=== PATIENT | female | born 1965 | race American Indian/Alaskan Native ===

== ENCOUNTER 2016-12-28 12:21 | Emergency (ER) | payer BC ==
[2016-12-28] MEDS ORDERED: DUONEB 0.5 MG-3 MG/3 ML SOLN IH ONE (13:30)
[2016-12-28] MEDS ORDERED: DECADRON IM ONE (13:30)
--- NOTE | 2016-12-28 13:33 | Emergency Department Report ---
HPI - General Chief Complaint: Upper Respiratory Infection Time Seen by Provider: 12/28/16 13:29 - HPI HPI: 51-year-old female presents today for wheezing 4 days. Positive for history of asthma. Patient states that she was around a child this weekend who had a cough. Patient took albuterol treatment at home with relief. Positive for productive cough with yellow sputum. Denies nasal congestion, earache. Denies fever, chills, nausea, vomiting, chest pain, abdominal pain. ED Past Medical Hx - Past Medical History Hx Asthma: Yes - Surgical History Additional Surgical History: - Social History Smoking Status: Never Smoker Substance Use Type: Alcohol, Non Opiate Pain, Prescribed - Medications Home Medications: Home Medications Medication Instructions Recorded Confirmed Last Taken Type Acetaminophen/Codeine [Tylenol #3] 1 tab PO Q6H PRN #15 tab 03/14/16 Unknown Rx Advair Diskus 500-50 mcg 03/14/16 03/14/16 History methOCARBAMOL [Robaxin TAB] 500 mg PO BID #20 tab 03/14/16 Unknown Rx ALBUTEROL Inhaler [ProAir HFA 2 puff IH QID PRN #1 inhalation 12/28/16 Unknown Rx Inhaler] Prednisone [predniSONE 5 mg (6-Day 5 mg PO .TAPER #1 tab.ds.pk 12/28/16 Unknown Rx Pack, 21 Tabs)] ED Review of Systems ROS: Stated complaint: WHEEZING Other details as noted in HPI Constitutional: denies: chills, fever, malaise Eyes: denies: eye pain ENT: denies: ear pain, throat pain, congestion Respiratory: cough, wheezing. denies: shortness of breath Cardiovascular: denies: chest pain, palpitations Endocrine: no symptoms reported Gastrointestinal: denies: abdominal pain, nausea, vomiting Skin: denies: rash Neurological: denies: headache, weakness Physical Exam - Physical Exam Vital Signs: Vital Signs 12/28/16 12:27 Temperature 97.9 F Pulse Rate 95 H Respiratory 18 Rate Blood Pressure 160/98 O2 Sat by Pulse 96 Oximetry Physical Exam: GENERAL: The patient is well-developed and well-nourished. Patient is in NAD. HEAD: Normocephalic. Atraumatic. EYES: PERRL. EARS: External auditory canals and tympanic membranes clear; hearing grossly intact. NOSE: Normal nasal mucosa with no nasal discharge. THROAT: No erythema, swelling or exudates. NECK: Supple, nontender, without lymphadenopathy. CHEST/LUNGS: Positive for expiratory wheezing. HEART/CARDIOVASCULAR: Regular rate and rhythm. ABDOMEN: Abdomen is soft, nontender. No guarding or rebound tenderness. EXTREMITIES: Peripheral pulses intact. Capillary refill less than 2 seconds. ED Course Vital Signs 12/28/16 12:27 Temperature 97.9 F Pulse Rate 95 H Respiratory 18 Rate Blood Pressure 160/98 O2 Sat by Pulse 96 Oximetry ED Medical Decision Making - Lab Data Vital Signs 12/28/16 12/28/16 12:27 17:30 Temperature 97.9 F 98.7 F Pulse Rate 95 H 94 H Respiratory 18 20 Rate Blood Pressure 160/98 Blood Pressure 124/70 [Left] O2 Sat by Pulse 96 94 Oximetry - Medical Decision Making 51-year-old female presents today with wheezing 4 days. Positive for history of asthma. Patient was given Decadron and DuoNeb. Upon reexamination patient admits symptomatic relief. Patient is in no acute distress at this time. She will be discharged home and is encouraged to follow up with a primary care provider. She will be sent home on albuterol inhaler and steroid pack and is encouraged to return to the emergency room for any worsening symptoms. Critical care attestation.: If time is entered above; I have spent that time in minutes in the direct care of this critically ill patient, excluding procedure time. ED Disposition Clinical Impression: Asthma Qualifiers: Asthma severity: unspecified severity Asthma complication type: with acute exacerbation Qualified Code(s): J45.901 - Unspecified asthma with (acute) exacerbation Disposition: DISCHARGED TO HOME OR SELFCARE Is pt being admited?: No Does the pt Need Aspirin: No Condition: Stable Instructions: Asthma (ED) Additional Instructions: Follow-up with primary care provider. Return to the emergency department if symptoms worsen. Prescriptions: ALBUTEROL Inhaler [ProAir HFA Inhaler] 2 puff IH QID PRN #1 inhalation PRN Reason: Shortness Of Breath Prednisone [predniSONE 5 mg (6-Day Pack, 21 Tabs)] 5 mg PO .TAPER #1 tab.ds.pk Referrals: PRIMARY CARE, [Primary Care Provider] - 3-5 Days [facility] [Outside] - 3-5 Days Forms: Work/School Release Form(ED) Time of Disposition: 17:58
[2016-12-28 17:31] VITALS: BP 124/70
== END 2016-12-28 18:17 | disposition home or self-care (01) ==
LOC: ED 12:21
DX: J45.901 Unspecified asthma with (acute) exacerbation (principal)
CPT/HCPCS: 94640; 96372; 99282; J1100

== ENCOUNTER 2017-03-28 08:40 | Emergency (ER) | payer BC ==
[2017-03-28 08:45] VITALS: BP 157/100
[2017-03-28] MEDS ORDERED: XYLOCAINE 1% 20 mL INFILTRATI ONE (09:32)
[2017-03-28] MEDS ORDERED: TRIPLE ANTIBIOTIC TP ONE (09:32)
[2017-03-28] MEDS ORDERED: MOTRIN PO ONE (09:32)
--- NOTE | 2017-03-28 09:33 | Emergency Department Report ---
ED Laceration HPI - HPI Chief Complaint: Laceration/Recheck/Suture Stated Complaint: CUT FINGER Time Seen by Provider: 03/28/17 09:26 Occurred When: Today Location: Upper Extremity Severity: moderate Tetanus Status: Up to Date Laceration Symptoms: Yes Pain Other History: 52-year-old female past medical history asthma presents with complaint of laceration to left distal index fingertip this morning while handling utensils and kitchen at home. 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 Patient states tetanus is up-to-date small visible 1 cm laceration at distal left index fingertip next to the nail. No apparent nail bed injury. Minimal bleeding ED Review of Systems ROS: Stated complaint: CUT FINGER Other details as noted in HPI Constitutional: denies: chills, fever Eyes: denies: eye pain, eye discharge, vision change ENT: denies: ear pain, throat pain Respiratory: denies: cough, shortness of breath, wheezing Cardiovascular: denies: chest pain, palpitations Endocrine: no symptoms reported Gastrointestinal: denies: abdominal pain, nausea, diarrhea Genitourinary: denies: urgency, dysuria, discharge Musculoskeletal: denies: back pain, joint swelling, arthralgia Skin: denies: rash, lesions Neurological: denies: headache, weakness, paresthesias Psychiatric: denies: anxiety, depression Hematological/Lymphatic: denies: easy bleeding, easy bruising ED Past Medical Hx - Past Medical History Previous Medical History?: Yes Hx Asthma: Yes - Surgical History Past Surgical History?: Yes Additional Surgical History: . left ankle surgery - Social History Smoking Status: Never Smoker Substance Use Type: Alcohol - Medications Home Medications: Home Medications Medication Instructions Recorded Confirmed Last Taken Type Acetaminophen/Codeine [Tylenol #3] 1 tab PO Q6H PRN #15 tab 03/14/16 Unknown Rx Advair Diskus 500-50 mcg 03/14/16 03/14/16 History methOCARBAMOL [Robaxin TAB] 500 mg PO BID #20 tab 03/14/16 Unknown Rx ALBUTEROL Inhaler [ProAir HFA 2 puff IH QID PRN #1 inhalation 12/28/16 Unknown Rx Inhaler] Prednisone [predniSONE 5 mg (6-Day 5 mg PO .TAPER #1 tab.ds.pk 12/28/16 Unknown Rx Pack, 21 Tabs)] Cephalexin [Keflex] 500 mg PO Q12HR #10 cap 03/28/17 Unknown Rx Ibuprofen [Motrin] 600 mg PO Q8H PRN #30 tablet 03/28/17 Unknown Rx Neomycn/Baci Zn/Pmyx Bs/Pramox 28 gm TP BID #1 oint...g. 03/28/17 Unknown Rx [Triple Antibioti-Pain Rlf Oint] Laceration Physical Exam - Exam General: Vital signs noted. No distress. Alert and acting appropriately. Wound Length (cm): 1 Laceration Location: Upper Extremity (small 1 cm straight laceration left distal index fingertip) Laceration Exam: Yes Normal Distal CMS, No Foreign Body, No Exposed Tendon, Vessel, or Nerve, No Tendon Injury ED Course Vital Signs 03/28/17 08:42 Temperature 97.9 F Pulse Rate 96 H Respiratory 18 Rate Blood Pressure 157/100 O2 Sat by Pulse 97 Oximetry - Laceration /Wound Repair Left Distal Finger Wound Location: upper extremity Wound Length (cm): 1 Wound's Depth, Shape: superficial Wound Explored: clean Irrigated w/ Saline (ccs): 100 Anesthesia: 1% Lidocaine Volume Anesthetic (ccs): 2 Wound Debrided: minimal Suture Size/Type: 4:0, nylon Number of Sutures: 3 Layer Closure?: No Sterile Dressing Applied?: Yes (Band-Aid with antibiotic ointment) ED Medical Decision Making - Medical Decision Making A/P: Laceration repair left distal index fingertip 1-good closure achieved 2-Triple Antibiotic ointment, Motrin when necessary, Keflex 5 day course 3-sutures to be removed in 7 days 4-advised patient to return to the ED for any fevers chills pus drainage with significant redness of the distal fingertip. Capillary refill finger range of motion fully intact no neurovascular injury, sensation fully intact Critical care attestation.: If time is entered above; I have spent that time in minutes in the direct care of this critically ill patient, excluding procedure time. ED Disposition Clinical Impression: Finger laceration Qualifiers: Encounter type: initial encounter Qualified Code(s): S61.219A - Laceration without foreign body of unspecified finger without damage to nail, initial encounter Disposition: DISCHARGED TO HOME OR SELFCARE Is pt being admited?: No Does the pt Need Aspirin: No Condition: Stable Instructions: Finger Laceration (ED), Suture Care (ED) Additional Instructions: Sutures to be removed in 7 days Prescriptions: Cephalexin [Keflex] 500 mg PO Q12HR #10 cap Ibuprofen [Motrin] 600 mg PO Q8H PRN #30 tablet PRN Reason: Pain Neomycn/Baci Zn/Pmyx Bs/Pramox [Triple Antibioti-Pain Rlf Oint] 28 gm TP BID #1 oint...g. Time of Disposition: 10:34
== END 2017-03-28 10:45 | disposition home or self-care (01) ==
LOC: ED 08:40
DX: S61.211A Laceration without foreign body of left index finger without damage to nail, initial encounter (principal); J45.909 Unspecified asthma, uncomplicated; W45.8XXA Other foreign body or object entering through skin, initial encounter; Y93.G1 Activity, food preparation and clean up; Y99.8 Other external cause status; Y92.090 Kitchen in other non-institutional residence as the place of occurrence of the external cause
CPT/HCPCS: A6250